=== PATIENT | female | born 1980 | race Caucasian/White ===

== ENCOUNTER 2021-07-23 03:55 | Inpatient (IN) | payer MEDICAID, SELFPAY ==
[2021-07-23] VITALS (24 sets, daily range): BP systolic 96–142; BP diastolic 49–92; PULSE 62–98; RESP 14–20; TEMP 36.3–36.9; O2SAT 93–100; BMI 32.8; BMI 32.9
--- NOTE | 2021-07-23 04:11 | CT_ITS ---
PROCEDURE INFORMATION: Exam: CT Left Upper Extremity With Contrast, Forearm Exam date and time: 07/23/2021 4:30 AM Age: 40 years old Clinical indication: Mass or lump and swelling; Arm, lower; Left; Additional info: Abcess mid forearm TECHNIQUE: Imaging protocol: CT of the Left upper extremity with intravenous contrast was performed. Exam focused on the forearm. Radiation optimization: All CT scans at this facility use at least one of these dose optimization techniques: automated exposure control; mA and/or kV adjustment per patient size (includes targeted exams where dose is matched to clinical indication); or iterative reconstruction. Contrast material: ISOVUE; Contrast volume: 75 ml; Contrast route: IV; COMPARISON: CR [id number] XR hand LT 2V 02/10/2018 12:05 AM FINDINGS: Bones/joints: No acute fracture or malalignment. No evidence of osteomyelitis. Soft tissues: There is a small abscess within the epidermis/dermis overlying the volar aspect of the forearm measuring 1.2 x 1.7 x 2.1 cm. There is some surrounding fat stranding and subcutaneous edema within subcutaneous tissues, consistent with cellulitis. There may be an additional tiny abscess in the subcutaneous soft tissues overlying the antecubital fossa measuring up to 0.8 cm (series 5, image 75). There is associated skin thickening. IMPRESSION: 1. Small abscess within the epidermis/dermis overlying the volar aspect of the forearm measuring up to 2.1 cm with evidence of surrounding cellulitis. 2. There may be an additional tiny abscess in the subcutaneous soft tissues overlying the antecubital fossa measuring up to 0.8 cm.
[2021-07-23 04:39] LABS: Basophils # 0.1 K/mm3 (0-0.2); Basophils % 0.9 % (0.1-2.0); Eosinophils # 0.2 K/mm3 (0.0-0.4); Eosinophils % 1.7 % (0.1-12.0); Hematocrit 38.2 % (37.0-47.0); Hemoglobin 12.6 g/dL (12.2-16.2); Lymphocytes # 2.6 K/mm3 (0.7-4.5); Mean Corpuscular Hemoglobin 27.8 pg (27.0-31.2); Mean Corpuscular Volume 84.4 fl (81-99); Mean Platelet Volume 8.6 fl (7.4-10.4); Monocytes # 0.5 K/mm3 (0.1-1.0); Monocytes % 5.2 % (1.7-9.3); Neutrophils # 5.9 K/mm3 (1.8-7.8); Neutrophils % 64.2 % (37.0-80.0); Platelet Count 326 K/mm3 (142-424); Red Blood Count 4.53 M/mm3 (4.20-5.40); Red Cell Distribution Width 13.2 % (11.5-17.5); White Blood Count 9.1 K/mm3 (4.8-10.8)
[2021-07-23 04:49] LABS: Alanine Aminotransferase 43 U/L (12-78); Albumin Level 4.1 g/dl (3.5-5.0); Albumin/Globulin Ratio 1.1 (1.1-1.8); Alkaline Phosphatase 200 U/L (38-126); Aspartate Amino Transferase 35 U/L (14-36); Bilirubin,Total 0.6 mg/dl (0.2-1.3); Blood Urea Nitrogen 10 mg/dl (7-17); Carbon Dioxide 29 mmol/L (22.0-30.0); Chloride 102 mmol/L (98-107); Creatinine Clearance Estimated 164 mL/min (50-200); Estimated Glomerular Filt Rate 94 ml/min (>60); GFR (African American) 113 ML/MIN (>60); Globulin 3.6 g/dL (1.3-3.2); Glucose 152 mg/dl (74-100); HCG Qualitative, Serum Negative (Negative); Sodium 136 mmol/L (136-145); Total Protein,Serum 7.7 g/dl (6.3-8.2)
[2021-07-23 04:50] LABS: Lactic Acid 1.3 mmol/L (0.7-2.1)
[2021-07-23 04:55] LABS: C-Reactive Protein 9.2 mg/L (0-4)
[2021-07-23 05:08] LABS: Procalcitonin 0.095 ng/mL (0.0-2.0)
[2021-07-23 05:10] LABS: Erythrocyte Sedimentation Rate 24 mm/hr (0-20)
--- NOTE | 2021-07-23 05:10 | PC.NURSE ---
Chantel from [employer] verified Vanc dosing at this time
--- NOTE | 2021-07-23 05:59 | HMH.EDSKAF ---
ED Disposition Clinical Impression: Obesity (BMI 30.0-34.9) Abscess of skin or subcutaneous tissue Qualifiers: Site of cutaneous abscess: extremity Site of cutaneous abscess of extremity: upper extremity Laterality: left Qualified Code(s): L02.414 - Cutaneous abscess of left upper limb Disposition: Admitted as Observation Condition on Discharge: Good Instructions: DI for Skin Abscess Referrals: Provider,Referral, [Primary Care Provider] - - Critical Care Critical Care Time: No Attestation: On 07/23/21, the high probability of a clinically significant, sudden or life threatening deterioration of the following system(s) required my full and direct attention, intervention and personal management. The time I documented below is in addition to time spent performing reported procedures but includes the following listed in this critical care notation. Medical Decision Making - Medical Records Medical records reviewed: Yes: I reviewed the patient's medical records. - Elieser Inquiry Pt receiving controlled substance: No Vital Signs: 07/23/21 03:56 07/23/21 05:13 Temperature 98.1 F Temperature Source Oral Pulse Rate 79 Pulse Rate [Right Radial] 90 Respiratory Rate 20 16 Blood Pressure 132/92 H Blood Pressure [Right Arm] 142/89 H Blood Pressure Mean [Right Arm] 106 Blood Pressure Source Automatic Cuff Blood Pressure Source [Right Arm] Automatic Cuff Blood Pressure Position Sitting Blood Pressure Position [Right Arm] Sitting 02 Sat by Pulse Oximetry 99 100 Oxygen Delivery Method Room Air Room Air - Lab Data Lab results reviewed: Yes: I reviewed the patient's lab results. Lab Results 07/23/21 04:20: WBC 9.1, RBC 4.53, Hgb 12.6, Hct 38.2, MCV 84.4, MCH 27.8, MCHC 33.0, RDW 13.2, Plt Count 326, MPV 8.6, Neut % (Auto) 64.2, Lymph % (Auto) 28.0, [place] % (Auto) 5.2, Eos % (Auto) 1.7, Baso % (Auto) 0.9, Neut # (Auto) 5.9, Lymph # (Auto) 2.6, [place] # (Auto) 0.5, Eos # (Auto) 0.2, Baso # (Auto) 0.1, ESR 24 H 07/23/21 04:20: Sodium 136, Potassium 4.0, Chloride 102, Carbon Dioxide 29, Anion Gap 9.0, BUN 10, Creatinine 0.70, Estimated Creat Clear 164, Estimated GFR 94, Est GFR ( Amer) 113, Glucose 152 H, Calcium 9.0, Total Bilirubin 0.6, AST 35, ALT 43, Alkaline Phosphatase 200 H, C-Reactive Protein 9.2 H, Total Protein 7.7, Albumin 4.1, Globulin 3.6 H, Albumin/Globulin Ratio 1.1 07/23/21 04:20: Lactate 1.3 07/23/21 04:20: Serum HCG, Qual Negative 07/23/21 04:20: Procalcitonin 0.095 Result diagrams: 07/23/21 04:20 07/23/21 04:20 Orders (Tests/Meds): ED MEDICATIONS Generic Name Dose Route Start Last Admin Trade Name Freq PRN Reason Stop Dose Admin Lactated Ringer's 1,000 mls @ 999 mls/hr 07/23/21 04:30 07/23/21 05:04 Lactated Ringer's 1000 Ml Bag IV 07/23/21 05:30 999 mls/hr .Q1H1M FREIDA Administration Vancomycin HCl 2,000 mg/ 250 mls @ 125 mls/hr 07/23/21 05:15 Sodium Chloride IV 07/23/21 07:14 ONCE ONE Vancomycin/PEG/NADA/Lysine/Water 1.75 gm in 350 mls @ 175 mls/hr 07/23/21 18:00 Vancomycin 1.75gm/350ml (Peg) Premix IV 08/06/21 17:59 Q12H FREIDA Discontinued Medications Generic Name Dose Route Start Last Admin Trade Name Freq PRN Reason Stop Dose Admin Iopamidol 75 ml 07/23/21 05:02 07/23/21 05:03 Iopamidol-370 (76%);100ml Bottle IV 07/23/21 05:03 75 ml ONCE ONE Administration Ketorolac Tromethamine 30 mg 07/23/21 05:03 07/23/21 05:04 Ketorolac 30mg/Ml Vial IV 07/23/21 05:04 30 mg ONCE ONE Administration Sodium Chloride 10 ml 07/23/21 05:02 07/23/21 05:03 Sodium Chloride 0.9% 10ml Syr (Rad Only) IV 07/23/21 05:03 10 ml ONCE ONE Administration ORDERS Category Date Time Status Blood Culture Stat Micro 07/23/21 04:20 Received - CT Data CT Scan: Other (forearm ) Time Received: 06:[address] Reviewed: Yes: I have viewed the radiologist's interpretation Preliminary Findings: Abnormal Medical Decision Jaime
[2021-07-23 06:14] LABS: Coronavirus 19, PCR Not Detected (NotDetected); Influenza A, PCR Not Detected (NotDetected); Influenza B, PCR Not Detected (NotDetected)
--- NOTE | 2021-07-23 06:56 | PC.NURSE ---
pt arrived to floor via wheelchair at this time
--- NOTE | 2021-07-23 07:14 | P.CONPHA_ITS ---
[facility] Pharmacy VTE Monitoring - Patient Demographics Admission date: 07/23/21 Report Date: 07/23/21 Time: 07:14 Allergies/Adverse Reactions: Patient Allergies No Known Allergies Allergy (Verified 04/22/18 23:44) Height: 1.7 m Weight: 95.254 kg Patient Problems: Current Active Problems Abscess of skin or subcutaneous tissue (Acute) Obesity (BMI 30.0-34.9) (Acute) - VTE Risk Labs: VTE Related Lab Results Hgb 12.6 g/dL (12.2-16.2) 07/23/21 04:20 Hct 38.2 % (37.0-47.0) 07/23/21 04:20 Plt Count 326 K/mm3 (142-424) 07/23/21 04:20 BUN 10 mg/dl (7-17) 07/23/21 04:20 Creatinine 0.70 mg/dl (0.52-1.04) 07/23/21 04:20 Estimated Creat Clear 164 mL/min (50-200) 07/23/21 04:20 VTE Risk Level: Low Risk - Prophylaxis VTE Prophylaxis Ordered?: Yes Types of VTE Prophylaxis: TEDS Knee High Location of Applied Device: Bilateral Lower Extremeties
--- NOTE | 2021-07-23 07:54 | P.CONPHA_ITS ---
- Pharmacy Consult Date: 07/23/21 Time: 07:54 Referring provider: DR. MADDEN Reason for Consult:: VANCOMYCIN DOSING Allergies and ADEs:: Allergies Allergy/AdvReac Type Severity Reaction Status Date / Time No Known Allergies Allergy Verified 04/22/18 23:44 Home Medications:: Home Medications Medication Instructions Recorded Confirmed Type No Known Home Medications 07/23/21 07/23/21 History Height: 1.7 m Weight: 95.254 kg Laboratory Results:: Laboratory Results - last 24 hr 07/23/21 04:20: WBC 9.1, RBC 4.53, Hgb 12.6, Hct 38.2, MCV 84.4, MCH 27.8, MCHC 33.0, RDW 13.2, Plt Count 326, MPV 8.6, Neut % (Auto) 64.2, Lymph % (Auto) 28.0, [place] % (Auto) 5.2, Eos % (Auto) 1.7, Baso % (Auto) 0.9, Neut # (Auto) 5.9, Lymph # (Auto) 2.6, [place] # (Auto) 0.5, Eos # (Auto) 0.2, Baso # (Auto) 0.1, ESR 24 H 07/23/21 04:20: Sodium 136, Potassium 4.0, Chloride 102, Carbon Dioxide 29, Anion Gap 9.0, BUN 10, Creatinine 0.70, Estimated Creat Clear 164, Estimated GFR 94, Est GFR ( Amer) 113, Glucose 152 H, Calcium 9.0, Total Bilirubin 0.6, AST 35, ALT 43, Alkaline Phosphatase 200 H, C-Reactive Protein 9.2 H, Total Protein 7.7, Albumin 4.1, Globulin 3.6 H, Albumin/Globulin Ratio 1.1 07/23/21 04:20: Lactate 1.3 07/23/21 04:20: Serum HCG, Qual Negative 07/23/21 04:20: Procalcitonin 0.095 07/23/21 06:09: SARS-CoV-2 (PCR) Not detected, Influenza A Untype (PCR) Not detected, Influenza Type B (PCR) Not detected Medical History: Reports:: MRSA Denies:: Cancer, Diabetes Mellitus Type 1, Diabetes Mellitus Type 2 Assessment and Plan - Assessment and plan all Dx Assessment and Plan for all problems:: Age: 40 yo Serum creatinine: 0.7 mg/dL Height: 66.9 Inches Weight (kg): 95.3 Assessment: IBW (kg): 65.87 Dosing wt(kg): 95.3 Estimated Creatinine clearance (ml/min): 130 Clearance limited to 130 ml/min to reduce risk of overdosing. CRCL method: Cockcroft and Gault using ibw(default). Drug selected: Vancomycin Loading dose (mg): 0 Vd (liters): 71.5 (factor used: 0.75 L/kg) Marquise (hr-1): 0.112 Half life (hrs): 6.19 Recommended dose: 1500 mg Interval: 8 hrs Infusion time (hrs): 2.0 Predicted peak (mcg/mL): 31.8 Predicted trough (mcg/mL): 16.24 Total body weight is being used for vancomycin dosing. Recommendations: PATIENT GIVEN VANCOMYCIN 2000 MG X1 DOSE IN ER THIS AM. Recommend giving Vancomycin 1500 mg q 8 hrs with an expected Cpeak of 31.8 mcg/ml and an expected Ctrough of 16.24 mcg/ml. ----Vanco only - ignore for aminoglycosides----- CLvanco= 8.01 L/hr AUC 0-24 /ELVIN Data: ELVIN 0.5 mcg/mL: AUC/ELVIN: 1123.6 ELVIN 1.0 mcg/mL: AUC/ELVIN: 561.8 --------- ELVIN 1.5 mcg/mL: AUC/ELVIN: 374.5 ELVIN 2.0 mcg/mL: AUC/ELVIN: 280.9 Thank you for the consult, will continue to follow.
--- NOTE | 2021-07-23 08:47 | HMH.GSCON ---
*Admission Date: 07/23/21 *Reason for consult:: Left forearm abscess *History of present illness: Patient is a 40-year-old female from [place]. She had presented to the emergency department early this morning with a progressively worsening left anterior forearm abscess. She states that this area had began on 07/19/2021. He was initially quite small. However it progressed in severity with significant swelling and tenderness with surrounding progressive redness. Therefore she decided to present to the emergency department early this morning at approximately 4 AM. She was admitted for inpatient management and surgical consultation. She denies any definite inciting event reportedly. Review of Systems - Review of Systems Review of systems:: pertinent systems reviewed and negative unless documented below - *Neurologic Denies localized weakness, Denies seizure-like activity [facility] History I have reviewed the patient's past medical history: Yes Medical History: Reports:: MRSA Denies:: Cancer, Diabetes Mellitus Type 1, Diabetes Mellitus Type 2 *Have you ever received a pneumonia vaccine?: No *Have you received a flu vaccine this season?: No Other Surgeries: Yes: Cholecystectomy, Tubal Ligation Amputation: No Fractures: No - *Social History Smoking Status: Current every day smoker Tobacco Type: cigarettes, e-cigarettes # Packs/Day (cigarettes): 1 Alcohol Intake: never Substance Use Type: denies use *Occupational Status:: unemployed *Travel in the last 8 weeks: None Family Hx:: Non-contributory Meds Home Medications Medication Instructions Recorded Confirmed Type No Known Home Medications 07/23/21 07/23/21 History Allergies Allergy/AdvReac Type Severity Reaction Status Date / Time No Known Allergies Allergy Verified 04/22/18 23:44 Exam Vital signs and Labs for Last 24 Hours: Temp Pulse Resp BP Pulse Ox 97.6 F 85 18 140/81 100 07/23/21 07:05 07/23/21 07:05 07/23/21 07:05 07/23/21 07:05 07/23/21 07:05 Laboratory Results - last 24 hr 07/23/21 04:20: WBC 9.1, RBC 4.53, Hgb 12.6, Hct 38.2, MCV 84.4, MCH 27.8, MCHC 33.0, RDW 13.2, Plt Count 326, MPV 8.6, Neut % (Auto) 64.2, Lymph % (Auto) 28.0, [place] % (Auto) 5.2, Eos % (Auto) 1.7, Baso % (Auto) 0.9, Neut # (Auto) 5.9, Lymph # (Auto) 2.6, [place] # (Auto) 0.5, Eos # (Auto) 0.2, Baso # (Auto) 0.1, ESR 24 H 07/23/21 04:20: Sodium 136, Potassium 4.0, Chloride 102, Carbon Dioxide 29, Anion Gap 9.0, BUN 10, Creatinine 0.70, Estimated Creat Clear 164, Estimated GFR 94, Est GFR ( Amer) 113, Glucose 152 H, Calcium 9.0, Total Bilirubin 0.6, AST 35, ALT 43, Alkaline Phosphatase 200 H, C-Reactive Protein 9.2 H, Total Protein 7.7, Albumin 4.1, Globulin 3.6 H, Albumin/Globulin Ratio 1.1 07/23/21 04:20: Lactate 1.3 07/23/21 04:20: Serum HCG, Qual Negative 07/23/21 04:20: Procalcitonin 0.095 07/23/21 06:09: SARS-CoV-2 (PCR) Not detected, Influenza A Untype (PCR) Not detected, Influenza Type B (PCR) Not detected I & O for Last 24 hours: Intake & Output 07/20/21 07/21/21 07/22/21 07/23/21 11:59 11:59 11:59 11:59 Intake Total 1100 / 1100 Balance 1100 / 1100 Weight 209 lb 15.986 oz - *Routine Extremities Exam Comments: On the left anterior forearm there is an area several centimeters of fluctuance. There is surrounding induration and erythema. Results - Labs 07/23/21 04:20 07/23/21 04:20 Laboratory Results - last 24 hr 07/23/21 04:20: WBC 9.1, RBC 4.53, Hgb 12.6, Hct 38.2, MCV 84.4, MCH 27.8, MCHC 33.0, RDW 13.2, Plt Count 326, MPV 8.6, Neut % (Auto) 64.2, Lymph % (Auto) 28.0, [place] % (Auto) 5.2, Eos % (Auto) 1.7, Baso % (Auto) 0.9, Neut # (Auto) 5.9, Lymph # (Auto) 2.6, [place] # (Auto) 0.5, Eos # (Auto) 0.2, Baso # (Auto) 0.1, ESR 24 H 07/23/21 04:20: Sodium 136, Potassium 4.0, Chloride 102, Carbon Dioxide 29, Anion Gap 9.0, BUN 10, Creatinine 0.70, Estimated Creat Clear 164, Estimated GFR 94, Est GFR ( Amer) 113, Glucose 152 H,
--- NOTE | 2021-07-23 10:17 | P.PN_ITS ---
[facility] Anesthesia Checklist - Patient Identification Patient Identification: Arm Band, Verbal (Name & ) - Structural Data Admitted From: Home Planned Operative Procedure/s: I and D Left Forearm Consent for Planned Operative Procedure(s) Verified: Yes Verified Documents: Surgical Consent - NPO Status Verified Time NPO: 02:00 - Chart Verification Results Verified: HCG - Airway Assessment C-Spine Mobility Assessed: Yes TMJ Mobility Assessed: Yes Dentition: Good Dentition - Neurological Assessment Level of Consciousness: Awake, Alert, Appropriate - Anesthesia Plan Anesthesia Risk discussed: Yes ASA Class: II Anesthesia Type: General [facility] History I have reviewed the patient's past medical history: Yes Medical History: Reports:: MRSA Denies:: Cancer, Diabetes Mellitus Type 1, Diabetes Mellitus Type 2 *Have you ever received a pneumonia vaccine?: No *Have you received a flu vaccine this season?: No Anesthesia experience/problems:: none Other Surgeries: Yes: Cholecystectomy, Tubal Ligation Amputation: No Fractures: No - *Social History Smoking Status: Current every day smoker Tobacco Type: cigarettes, e-cigarettes # Packs/Day (cigarettes): 1 Alcohol Intake: never Substance Use Type: denies use *Occupational Status:: unemployed *Travel in the last 8 weeks: None Family Hx:: Non-contributory
--- NOTE | 2021-07-23 10:17 | HMH.OPNOTE ---
Date of procedure: 07/23/21 Pre-op Diagnosis:: Left forearm abscess Post-op Diagnosis:: Same Procedure performed:: Incision and drainage left forearm abscess Surgeon:: Leonardo Booth MD TECHNICAL CUSTOMER SUPPORT SPECIALIST:: Other Anesthesia: LMA Estimated blood loss (mL): 5 Clinical Note:: Patient is a 40-year-old female from [place]. She had presented to the emergency department early this morning with a progressively worsening left anterior forearm abscess. She states that this area had began on 07/19/2021. It was initially quite small. However it progressed in severity with significant swelling and tenderness with surrounding progressive redness, erythema, and induration with central fluctuance. Therefore she presented to the emergency department early this morning at approximately 4 AM. She was admitted for inpatient management and surgical consultation. She denies any definite inciting event reportedly. Plan was made for incision and drainage under anesthesia. Operative findings:: Subcutaneous abscess with thick pus. Inflamed vein deep with an abscess cavity. Operative note:: Patient was taken to the operating room. She was given preoperative intravenous antibiotics. In the operating room she was placed in a supine position. General anesthesia was induced via LMA. The area was prepped and draped in the standard surgical fashion. There was already some spontaneous drainage from the area which had been noted in the preoperative area. Limited incision was made longitudinally. There was some thick pus which exuded from the wound. This was sent for culture. Abscess cavity was opened. Pus was evacuated. There was a deep vein within the abscess cavity which was inflamed. Local anesthetic was infiltrated. Hemostasis was achieved with electrocautery. Wound was packed with saline moistened gauze and covered with clean dry sterile dressing. Condition: stable Disposition: PACU Specimens:: Culture sent Complications:: None immediately apparent
--- NOTE | 2021-07-23 10:18 | P.PN_ITS ---
[facility] Anesthesia Record Part I Intake, IV Amount: 200 Estimated blood loss (mL): 1 Urine output (mL): 0 Blood Pressure: 96/54 SaO2: 93 Pulse Rate: 74 Respiratory Rate: 14 Temperature: 97.5 F Patient is:: Drowsy Stable to PACU at:: 10:16
--- NOTE | 2021-07-23 10:56 | SUR.PHASEI ---
1045- detailed report called to jessica mckeon on [facility] floor. 1047- pt [facility] to jessica mckeon at this time.
--- NOTE | 2021-07-23 12:17 | HMH.HP ---
*Admission Date: 07/23/21 *Chief complaint: abscess *History of present illness: this patient presented to the ed this am with progressive swelling and pain lt forearm - pt was seen and admitted for iv abx and surg consult -no reported diabetes or ivdu - [facility] History I have reviewed the patient's past medical history: Yes Medical History: Reports:: MRSA Denies:: Cancer, Diabetes Mellitus Type 1, Diabetes Mellitus Type 2 *Have you ever received a pneumonia vaccine?: No *Have you received a flu vaccine this season?: No Anesthesia experience/problems:: none Other Surgeries: Yes: Cholecystectomy, Tubal Ligation Amputation: No Fractures: No - *Social History Smoking Status: Current every day smoker Tobacco Type: cigarettes, e-cigarettes # Packs/Day (cigarettes): 1 Alcohol Intake: never Substance Use Type: denies use *Occupational Status:: unemployed *Travel in the last 8 weeks: None Family Hx:: Non-contributory Review of Systems - Review of Systems Review of systems:: pertinent systems reviewed and negative unless documented below - Constitutional Denies fever(s) - Eyes Denies change in vision - ENT Denies dizziness - *Cardiovascular Denies chest pain - *Respiratory Denies cough - *Gastrointestinal Denies abdominal pain - *Genitourinary Denies blood in urine - *Musculoskeletal Denies joint pain, Denies joint swelling - Integumentary/Breasts Reports other (skin abscess), Denies rash - *Neurologic Denies localized weakness, Denies seizure-like activity - Psychiatric Denies depression Meds Home Medications Medication Instructions Recorded Confirmed Type No Known Home Medications 07/23/21 07/23/21 History Allergies Allergy/AdvReac Type Severity Reaction Status Date / Time No Known Allergies Allergy Verified 04/22/18 23:44 Exam Vital signs and Labs for Last 24 Hours: Temp Pulse Resp BP Pulse Ox 98.0 F 62 20 113/59 L 98 07/23/21 12:05 07/23/21 12:05 07/23/21 12:05 07/23/21 12:05 07/23/21 12:05 Laboratory Results - last 24 hr 07/23/21 04:20: WBC 9.1, RBC 4.53, Hgb 12.6, Hct 38.2, MCV 84.4, MCH 27.8, MCHC 33.0, RDW 13.2, Plt Count 326, MPV 8.6, Neut % (Auto) 64.2, Lymph % (Auto) 28.0, [place] % (Auto) 5.2, Eos % (Auto) 1.7, Baso % (Auto) 0.9, Neut # (Auto) 5.9, Lymph # (Auto) 2.6, [place] # (Auto) 0.5, Eos # (Auto) 0.2, Baso # (Auto) 0.1, ESR 24 H 07/23/21 04:20: Sodium 136, Potassium 4.0, Chloride 102, Carbon Dioxide 29, Anion Gap 9.0, BUN 10, Creatinine 0.70, Estimated Creat Clear 164, Estimated GFR 94, Est GFR ( Amer) 113, Glucose 152 H, Calcium 9.0, Total Bilirubin 0.6, AST 35, ALT 43, Alkaline Phosphatase 200 H, C-Reactive Protein 9.2 H, Total Protein 7.7, Albumin 4.1, Globulin 3.6 H, Albumin/Globulin Ratio 1.1 07/23/21 04:20: Lactate 1.3 07/23/21 04:20: Serum HCG, Qual Negative 07/23/21 04:20: Procalcitonin 0.095 07/23/21 06:09: SARS-CoV-2 (PCR) Not detected, Influenza A Untype (PCR) Not detected, Influenza Type B (PCR) Not detected I & O for Last 24 hours: Intake & Output 07/21/21 07/22/21 07/23/21 07/24/21 11:59 11:59 11:59 11:59 Intake Total 1300 / 1300 Balance 1300 / 1300 Weight 209 lb 15.986 oz - Constitutional no acute distress, obese - *Routine HEENT Exam Head: Present: normocephalic Eye: Present: EOMI, PERRL. Absent: conjunctival icterus ENT: Present: mucous membranes dry - *Routine Neck Exam Absent: JVD - *Routine Respiratory Exam Present: decreased breath sounds - *Routine Cardiovascular Exam Present: RRR, murmur - *Routine Abdominal Exam Present: soft - *Routine Rectal Exam Rectal:: deferred - *Routine Genitalia Exam Genitalia:: deferred - *Routine Extremities Exam Absent: calf tenderness - *Routine Skin Exam Comments: 2x4 cm abscess lt forearm - *Routine Neurological Exam Present: alert, CN II-XII intact - Routine Psychiatric Exam Present: cooperative Assessment and Plan (1) [place]
--- NOTE | 2021-07-23 14:47 | PC.NURSE ---
PT IS RESTING IN BED WITH SIGNIFICANT OTHER. PT HAS BEEN SLEEPING SINCE ARRIVING BACK TO THE FLOOR FROM SURGERY. NO COMPLAINTS OF DISCOMFORT. PT STATES SHE HAS BEEN UP TO THE BATHROOM BUT STILL HAS NOT PROVIDED A URINE SAMPLE. LUNG SOUNDS CLEAR. ABDOMEN SOFT/NON TENDER WITH ACTIVE BOWEL SOUNDS. DRESSING TO THE LFA C/D/I. POST OP VSS. WILL CONTINUE TO MONITOR.
--- NOTE | 2021-07-23 22:43 | PC.NURSE ---
Patient's dsg was changed wet to dry. Patient tolerated it fair. Wet 4x4, dry 4x4, kerlix and aracely bandage where used.
[2021-07-24] VITALS: BP 110/54; PULSE 115; RESP 16; TEMP 36.4; O2SAT 98
[2021-07-24 04:00] VITALS: BP 108/68; PULSE 69; RESP 16; TEMP 36.6; O2SAT 90
[2021-07-24 05:17] VITALS: BMI 33.1
[2021-07-24 05:29] LABS: Microscopic, Urine URINE MICROSCOPIC (MICROSCOPIC)
[2021-07-24 06:35] LABS: Appearance,Urine CLEAR (Clear); Bilirubin,Urine Negative (Negative); Blood, Urine Negative (Negative); Color,Urine YELLOW (Yellow); Glucose,Urine (UA) Negative (Negative); Ketones,Urine Negative (Negative); Leukocyte Esterase,Urine Negative (Negative); Nitrate,Urine Negative (Negative); Protein,Urine Negative (Negative); Urobilinogen,Urine 0.2 EU/dl (0.2)
[2021-07-24 06:37] LABS: Chloride 108 mmol/L (98-107); Sodium 140 mmol/L (136-145)
[2021-07-24 06:38] LABS: Potassium 4.7 mmoL/L (3.5-5.1)
[2021-07-24 06:41] LABS: Anion Gap 11.7 mEq/L (5-15); Basophils % 0.5 % (0.1-2.0); Blood Urea Nitrogen 10 mg/dl (7-17); Calcium 8.2 mg/dl (8.4-10.2); Carbon Dioxide 25 mmol/L (22.0-30.0); Creatinine Clearance Estimated 231 mL/min (50-200); Eosinophils # 0.1 K/mm3 (0.0-0.4); Eosinophils % 1.7 % (0.1-12.0); Estimated Glomerular Filt Rate 138 ml/min (>60); GFR (African American) 167 ML/MIN (>60); Glucose 136 mg/dl (74-100); Hematocrit 36.1 % (37.0-47.0); Hemoglobin 12.2 g/dL (12.2-16.2); Lymphocytes # 2.1 K/mm3 (0.7-4.5); Lymphocytes % 24.7 % (10-50); Mean Corpuscular HGB Conc 33.8 g/dL (31.8-35.4); Mean Corpuscular Hemoglobin 28.8 pg (27.0-31.2); Mean Corpuscular Volume 85.3 fl (81-99); Mean Platelet Volume 9.6 fl (7.4-10.4); Monocytes # 0.5 K/mm3 (0.1-1.0); Monocytes % 6.2 % (1.7-9.3); Neutrophils # 5.7 K/mm3 (1.8-7.8); Neutrophils % 66.9 % (37.0-80.0); Platelet Count 357 K/mm3 (142-424); Red Blood Count 4.23 M/mm3 (4.20-5.40); Red Cell Distribution Width 13.2 % (11.5-17.5); White Blood Count 8.5 K/mm3 (4.8-10.8)
[2021-07-24 06:47] LABS: Benzodiazepines Screen,Urine Positive ng/ml (<200)
[2021-07-24 06:48] LABS: Barbiturates Screen,Urine Negative ng/ml (<200)
[2021-07-24 06:49] LABS: Cannabinoid Screen,Urine Negative ng/ml (<50); Cocaine Screen,Urine Negative ng/ml (<300)
[2021-07-24 06:50] LABS: Methadone Screen,Urine Negative ng/ml (<300); Opiate Screen,Urine Positive ng/ml (<300)
[2021-07-24 06:51] LABS: Phencyclidine Screen,Urine Negative ng/ml (<25)
--- NOTE | 2021-07-24 07:19 | HMH.GSPN ---
Subjective Narrative: Patient states overall her arm feels better after incision and drainage. However, she has some pain with dressing changes. Progress Note: A&P (1) Tobacco use Status: Acute (2) Abscess of skin or subcutaneous tissue Status: Acute (3) Obesity (BMI 30.0-34.9) Status: Acute Assessment and Plan for All Diagnoses:: Cultures pending. If plan is for discharge patient will need clear instructions on twice daily dressing changes. Also would need broad coverage oral antibiotics to cover MRSA as well as gram-negative's. Would need close outpatient follow-up. Exam Vital signs and Labs for Last 24 Hours: Temp Pulse Resp BP Pulse Ox 97.9 F 69 16 108/68 L 90 L 07/24/21 04:00 07/24/21 04:00 07/24/21 04:00 07/24/21 04:00 07/24/21 04:00 Laboratory Results - last 24 hr 07/24/21 05:12: Urine Opiates Screen Positive H, Urine Methadone Screen Negative, Ur Barbituates Screen Negative, Ur Phencyclidine Scrn Negative, U Benzodiazepines Scrn Positive H, Urine Cocaine Screen Negative, U Marijuana (THC) Screen Negative 07/24/21 05:12: Urine Color Yellow, Urine Appearance Clear, Urine pH 7.0, Ur Specific [place] 1.010, Urine Protein Negative, Urine Glucose (UA) Negative, Urine Ketones Negative, Urine Blood Negative, Urine Nitrate Negative, Urine Bilirubin Negative, Urine Urobilinogen 0.2, Ur Leukocyte Esterase Negative 07/24/21 05:57: WBC 8.5, RBC 4.23, Hgb 12.2, Hct 36.1 L, MCV 85.3, MCH 28.8, MCHC 33.8, RDW 13.2, Plt Count 357, MPV 9.6, Neut % (Auto) 66.9, Lymph % (Auto) 24.7, [place] % (Auto) 6.2, Eos % (Auto) 1.7, Baso % (Auto) 0.5, Neut # (Auto) 5.7, Lymph # (Auto) 2.1, [place] # (Auto) 0.5, Eos # (Auto) 0.1, Baso # (Auto) 0.0 07/24/21 05:57: Sodium 140, Potassium 4.7, Chloride 108 H, Carbon Dioxide 25, Anion Gap 11.7, BUN 10, Creatinine 0.50 L D, Estimated Creat Clear 231, Estimated GFR 138, Est GFR ( Amer) 167 D, Glucose 136 H, Calcium 8.2 L I & O for Last 24 hours: Intake & Output 07/21/21 07/22/21 07/23/21 07/24/21 11:59 11:59 11:59 11:59 Intake Total 1300 / 1300 1783 / 1783 Output Total 750 / 750 Balance 1300 / 1300 1033 / 1033 Weight 209 lb 15.986 oz 211 lb 3 oz Microbiology Reports for the Last 24 Hours: Microbiology 07/23/21 10:00 Arm,Left - Abscess Gram Stain - Final 07/23/21 10:00 Arm,Left - Abscess Abscess Culture - Preliminary Gram Positive Cocci - *Routine Extremities Exam Comments: Wound itself is clean. Still with appreciable surrounding erythema and induration.
[2021-07-24 07:22] LABS: Squamous Epithelial Cell,Urine Occasional #/hpf (0-5)
[2021-07-24 07:23] LABS: Amphetamine/Metha Screen,Urine Positive ng/ml (<1000)
[2021-07-24 08:00] VITALS: BP 101/43; PULSE 82; RESP 17; TEMP 36.6; O2SAT 98
--- NOTE | 2021-07-24 09:01 | HMH.ACPN2 ---
Internal Medicine - PN: Subj *Date: 07/24/21 *Time: 09:46 Interval history: 40-year-old female patient resting bed with family member, she denies any concerns during night. Dressing performed clean dry and intact. General surgery performed an incision and drainage of left forearm with evacuation. Discussed with patient need to stay in hospital another day regarding wound cultures, dressing changes, and pain control, she is agreeable to this and discussed probable discharge tomorrow and hopefully wound cultures resulted Exam Vital signs and Labs for Last 24 Hours: Temp Pulse Resp BP Pulse Ox 97.9 F 82 17 101/43 L 98 07/24/21 08:00 07/24/21 08:00 07/24/21 08:00 07/24/21 08:00 07/24/21 08:00 Laboratory Results - last 24 hr 07/24/21 05:12: Urine Opiates Screen Positive H, Urine Methadone Screen Negative, Ur Barbituates Screen Negative, Ur Phencyclidine Scrn Negative, Ur Amphetamines Screen Positive H, U Benzodiazepines Scrn Positive H, Urine Cocaine Screen Negative, U Marijuana (THC) Screen Negative 07/24/21 05:12: Urine Color Yellow, Urine Appearance Clear, Urine pH 7.0, Ur Specific [place] 1.010, Urine Protein Negative, Urine Glucose (UA) Negative, Urine Ketones Negative, Urine Blood Negative, Urine Nitrate Negative, Urine Bilirubin Negative, Urine Urobilinogen 0.2, Ur Leukocyte Esterase Negative, Urine RBC None, Urine WBC 3-5, Ur Squamous Epith Cells Occasional, Urine Bacteria None 07/24/21 05:57: WBC 8.5, RBC 4.23, Hgb 12.2, Hct 36.1 L, MCV 85.3, MCH 28.8, MCHC 33.8, RDW 13.2, Plt Count 357, MPV 9.6, Neut % (Auto) 66.9, Lymph % (Auto) 24.7, [place] % (Auto) 6.2, Eos % (Auto) 1.7, Baso % (Auto) 0.5, Neut # (Auto) 5.7, Lymph # (Auto) 2.1, [place] # (Auto) 0.5, Eos # (Auto) 0.1, Baso # (Auto) 0.0 07/24/21 05:57: Sodium 140, Potassium 4.7, Chloride 108 H, Carbon Dioxide 25, Anion Gap 11.7, BUN 10, Creatinine 0.50 L D, Estimated Creat Clear 231, Estimated GFR 138, Est GFR ( Amer) 167 D, Glucose 136 H, Calcium 8.2 L I & O for Last 24 hours: Intake & Output 07/21/21 07/22/21 07/23/21 07/24/21 23:59 23:59 23:59 23:59 Intake Total 2162 / 2162 921 / 921 Output Total 0 / 400 750 / 750 Balance 2162 / 1762 171 / 171 Weight 209 lb 15.986 oz 211 lb 3 oz Microbiology Reports for the Last 24 Hours: Microbiology 07/23/21 10:00 Arm,Left - Abscess Gram Stain - Final 07/23/21 10:00 Arm,Left - Abscess Abscess Culture - Preliminary Gram Positive Cocci - Constitutional no acute distress - *Routine HEENT Exam Head: Present: normocephalic Eye: Present: EOMI ENT: Present: mucous membranes moist - *Routine Neck Exam Present: trachea midline. Absent: tracheal deviation - *Routine Respiratory Exam Present: CTA bilaterally. Absent: accessory muscle use - *Routine Cardiovascular Exam Present: RRR - *Routine Abdominal Exam Present: soft, normoactive bowel sounds. Absent: tenderness - *Routine Extremities Exam Present: full ROM, pulses intact. Absent: cyanosis, clubbing - *Routine Skin Exam Present: dry, wounds. Absent: intact, cyanosis, erythema Comments: Dressing left forearm clean dry and intact - *Routine Neurological Exam Present: alert, oriented X3. Absent: altered mental status - Routine Psychiatric Exam Present: normal affect, normal thought process. Absent: visual hallucinations Assessment and Plan (1) Tobacco use Status: Acute Category: Social Hx Code(s): Z72.0 - Tobacco use (2) Abscess of skin or subcutaneous tissue Status: Acute Qualifiers: Site of cutaneous abscess: extremity Site of cutaneous abscess of extremity: upper extremity Laterality: left Qualified Code(s): L02.414 - Cutaneous abscess of left upper limb Category: Medical Code(s): L02.91 - Cutaneous abscess, unspecified (3) Obesity (BMI 30.0-34.9) Status: Acute Category: Medical Code(s): E66.9 - Obesity, unspecified - Assessment and plan all D
[2021-07-24 09:15] LABS: HIV Screen 4th Generation wRfx Non Reactive (Non Reactive)
[2021-07-24 11:24] LABS: Hep A Ab, IgM Negative (Negative); Hepatitis B Core Antibody IgM Negative (Negative); Hepatitis B Surface Antigen Negative (Negative); Hepatitis C Antibody >11.0 s/co ratio (0.0-0.9)
[2021-07-24 12:00] VITALS: BP 108/52; PULSE 78; RESP 17; TEMP 36.9; O2SAT 97
--- NOTE | 2021-07-24 15:55 | PC.NURSE ---
PT IS RESTING IN BED WITH SIGNIFICANT OTHER. PT HAS BEEN SLEEPING T/O MOST OF THE SHIFT. AMBULATES TO THE BATHROOM. EATING AND DRINKING WELL. DRESSING WAS CHANGED THIS MORNING WITH SALINE SOAKED 2X2, DRY 4X4, KERLIX AND JADON WRAP. PT STATED SHE COULD TAKE CARE OF HER DRESSING CHANGES AT HOME WHEN DISCHARGED. LUNG SOUNDS CLEAR. ABDOMEN SOFT/NON TENDER WITH ACTIVE BOWEL SOUNDS. MEDICATED PER MAR FOR DISCOMFORT. WILL CONTINUE TO MONITOR.
[2021-07-24 16:00] VITALS: BP 132/85; PULSE 54; RESP 17; TEMP 36.8; O2SAT 98
[2021-07-24 20:00] VITALS: BP 102/66; PULSE 61; RESP 16; TEMP 36.6; O2SAT 97
[2021-07-24 20:04] LABS: Vancomycin,Peak 27.5 ug/ml (11-39)
[2021-07-25 04:00] VITALS: BP 102/49; PULSE 61; RESP 16; TEMP 37; O2SAT 99
[2021-07-25 06:21] LABS: MANUAL DIFFERENTIAL MANUAL DIFFERENTIAL (MANUAL DIFF)
[2021-07-25 06:23] LABS: Basophils # 0.1 K/mm3 (0-0.2); Eosinophils # 0.2 K/mm3 (0.0-0.4); Eosinophils % 3.4 % (0.1-12.0); Hematocrit 34.9 % (37.0-47.0); Hemoglobin 11.8 g/dL (12.2-16.2); Lymphocytes # 2.4 K/mm3 (0.7-4.5); Mean Corpuscular Volume 85.3 fl (81-99); Monocytes # 0.4 K/mm3 (0.1-1.0); Monocytes % 7.9 % (1.7-9.3); Neutrophils # 2.5 K/mm3 (1.8-7.8); Neutrophils % 44.8 % (37.0-80.0); Platelet Count 286 K/mm3 (142-424); Red Blood Count 4.09 M/mm3 (4.20-5.40); Red Cell Distribution Width 13.5 % (11.5-17.5); White Blood Count 5.6 K/mm3 (4.8-10.8)
[2021-07-25 07:03] LABS: Chloride 113 mmol/L (98-107); Potassium 4.1 mmoL/L (3.5-5.1); Sodium 141 mmol/L (136-145)
--- NOTE | 2021-07-25 07:04 | P.PN_ITS ---
Subjective Patient reports: feels better Progress Note: A&P (1) Tobacco use Status: Acute (2) Abscess of skin or subcutaneous tissue Status: Acute Assessment and plan: Overall, doing well status post incision and drainage of left arm abscess. Final sensitivities pending (preliminary MRSA) Continue dressing changes Continue antibiotics (likely convert to PO (? Zyvox) for d/c home) Consider continuing additional antibiotic such as Levaquin or Augmentin secondary to possible additional organism (3) Obesity (BMI 30.0-34.9) Status: Acute Exam Vital signs and Labs for Last 24 Hours: Temp Pulse Resp BP Pulse Ox 98.6 F 61 16 102/49 L 99 07/25/21 04:00 07/25/21 04:00 07/25/21 04:00 07/25/21 04:00 07/25/21 04:00 Laboratory Results - last 24 hr 07/23/21 09:40: Hepatitis A IgM Ab Negative, Hep Bs Antigen Negative, Hep B Core IgM Ab Negative, Hepatitis C Antibody >11.0 H 07/23/21 09:40: HIV 1&2 Ag/Ab, 4th Gen Non reactive 07/24/21 05:12: Ur Amphetamines Screen Positive H 07/24/21 05:12: Urine RBC None, Urine WBC 3-5, Ur Squamous Epith Cells Occasional, Urine Bacteria None 07/24/21 14:43: Vancomycin Trough 14.0 H 07/24/21 19:16: Vancomycin Peak 27.5 07/25/21 06:15: WBC 5.6 D, RBC 4.09 L, Hgb 11.8 L, Hct 34.9 L, MCV 85.3, MCH 29.0, MCHC 34.0, RDW 13.5, Plt Count 286, MPV 10.0, Neut % (Auto) 44.8, Lymph % (Auto) 43.0, [place] % (Auto) 7.9, Eos % (Auto) 3.4, Baso % (Auto) 1.0, Neut # (Auto) 2.5, Lymph # (Auto) 2.4, [place] # (Auto) 0.4, Eos # (Auto) 0.2, Baso # (Auto) 0.1 I & O for Last 24 hours: Intake & Output 07/22/21 07/23/21 07/24/21 07/25/21 11:59 11:59 11:59 11:59 Intake Total 1300 / 1300 1783 / 1783 2350 / 2350 Output Total 750 / 750 Balance 1300 / 1300 1033 / 1033 2349 / 2349 Weight 209 lb 15.986 oz 211 lb 3 oz Microbiology Reports for the Last 24 Hours: Microbiology 07/23/21 10:00 Arm,Left - Abscess Gram Stain - Final 07/23/21 10:00 Arm,Left - Abscess Abscess Culture - Preliminary Staphylococcus aureus 07/23/21 04:20 Blood Blood Culture - Preliminary NO GROWTH AFTER 48 HOURS 07/23/21 04:20 Blood Blood Culture - Preliminary NO GROWTH AFTER 48 HOURS 07/23/21 10:00 Arm,Left - Abscess - Final - Constitutional no acute distress - *Routine Respiratory Exam Absent: respiratory distress - *Routine Cardiovascular Exam Present: RRR - *Routine Extremities Exam Comments: left arm wound margin clean. + blush and mild induration. no spreading cellulitis.
[2021-07-25 07:06] LABS: Anion Gap 8.1 mEq/L (5-15); Blood Urea Nitrogen 8 mg/dl (7-17); Calcium 8.1 mg/dl (8.4-10.2); Carbon Dioxide 24 mmol/L (22.0-30.0); Creatinine Clearance Estimated 192 mL/min (50-200); Estimated Glomerular Filt Rate 112 ml/min (>60); GFR (African American) 135 ML/MIN (>60); Glucose 110 mg/dl (74-100)
[2021-07-25 08:00] VITALS: BP 123/86; PULSE 62; RESP 18; TEMP 36.7; O2SAT 99
[2021-07-25 08:07] LABS: Hypochromasia 1+; Lymphocytes % 47 % (10-50); Macrocytosis 1+; Monocytes % 6 % (2-9); Neutrophils % 47 % (42-76); Platelet Estimate Normal; Total Cells Counted 100
--- NOTE | 2021-07-25 09:29 | SW/DCPLANNER ---
The plan for this patient is to discharge home today. Patient is agreeable to do all dressing changes at home. Patient has no further needs at this time.
--- NOTE | 2021-07-25 09:43 | HMH.DCSUM ---
General - General Admission date:: 07/23/21 Discharge date: 07/25/21 HPI HPI: this patient presented to the ed this am with progressive swelling and pain lt forearm - pt was seen and admitted for iv abx and surg consult -no reported diabetes or ivdu - Hospital Course Hospital Course: 40-year-old female presented to the emergency department with a progressively worsening left anterior forearm abscess. She states that this area had began on 07/19/2021. It was initially quite small, but then progressed in severity with significant swelling, redness and tenderness. General surgery consulted 07/23/[address]: FINDINGS: Bones/joints: No acute fracture or malalignment. No evidence of osteomyelitis. Soft tissues: There is a small abscess within the epidermis/dermis overlying the volar aspect of the forearm measuring 1.2 x 1.7 x 2.1 cm. There is some surrounding fat stranding and subcutaneous edema within subcutaneous tissues, consistent with cellulitis. There may be an additional tiny abscess in the subcutaneous soft tissues overlying the antecubital fossa measuring up to 0.8 cm (series 5, image 75). There is associated skin thickening. IMPRESSION: 1. Small abscess within the epidermis/dermis overlying the volar aspect of the forearm measuring up to 2.1 cm with evidence of surrounding cellulitis. 2. There may be an additional tiny abscess in the subcutaneous soft tissues overlying the antecubital fossa measuring up to 0.8 cm. Electronically signed by Nesha Urbina MD 07/23/21 incision and drainage of left forearm abscess: Operative findings:: Subcutaneous abscess with thick pus. Inflamed vein deep with an abscess cavity. Operative note:: Patient was taken to the operating room. She was given preoperative intravenous antibiotics. In the operating room she was placed in a supine position. General anesthesia was induced via LMA. The area was prepped and draped in the standard surgical fashion. There was already some spontaneous drainage from the area which had been noted in the preoperative area. Limited incision was made longitudinally. There was some thick pus which exuded from the wound. This was sent for culture. Abscess cavity was opened. Pus was evacuated. There was a deep vein within the abscess cavity which was inflamed. Local anesthetic was infiltrated. Hemostasis was achieved with electrocautery. Wound was packed with saline moistened gauze and covered with clean dry sterile dressing. 40-year-old female patient lying in bed with boyfriend, she reports she is feeling better today and states that she completed dressing change for self. Discussed discharge to home with close follow-up with surgery and PCP, she is agreeable to this she reports pain has been controlled with as needed pain medicine. 1. We will discharge home today 2. Follow-up with Dr. Aguilar in 1 week 3. Follow-up with general surgery in 1 week 4. Bactrim DS 1 pill twice daily x10 days 5. Augmentin 1 pill twice daily x10 days 6. [place] 5 1 tab every 6 hours as needed pain Objective Vital signs: Temp Pulse Resp BP Pulse Ox 98.6 F 61 16 102/49 L 99 07/25/21 04:00 07/25/21 04:00 07/25/21 04:00 07/25/21 04:00 07/25/21 04:00 no acute distress - *Routine HEENT Exam Head: Present: normocephalic Eye: Present: EOMI ENT: Present: mucous membranes moist - *Routine Neck Exam Present: trachea midline. Absent: tracheal deviation - *Routine Respiratory Exam Present: CTA bilaterally. Absent: accessory muscle use - *Routine Cardiovascular Exam Present: RRR - *Routine Abdominal Exam Present: soft, normoactive bowel sounds. Absent: tenderness, firm - *Routine Extremities Exam Present: full ROM, pulses intact. Absent: cyanosis, clubbing - *Routine Skin Exam Present: warm, wounds. Absent: cyanosis, erythema Comments: Dressing to left forearm clean dry and intact - *Routine
--- NOTE | 2021-07-25 09:51 | P.CONPHA_ITS ---
- Pharmacy Consult Date: 07/25/21 Time: 09:51 Referring provider: DR. MADDEN Reason for Consult:: VANCOMYCIN LEVELS Allergies and ADEs:: Allergies Allergy/AdvReac Type Severity Reaction Status Date / Time No Known Allergies Allergy Verified 04/22/18 23:44 Home Medications:: Home Medications Medication Instructions Recorded Confirmed Type No Known Home Medications 07/23/21 07/23/21 History Height: 1.7 m Weight: 95.793 kg Laboratory Results:: Laboratory Results - last 24 hr 07/23/21 09:40: Hepatitis A IgM Ab Negative, Hep Bs Antigen Negative, Hep B Core IgM Ab Negative, Hepatitis C Antibody >11.0 H 07/24/21 14:43: Vancomycin Trough 14.0 H 07/24/21 19:16: Vancomycin Peak 27.5 07/25/21 06:15: WBC 5.6 D, RBC 4.09 L, Hgb 11.8 L, Hct 34.9 L, MCV 85.3, MCH 29.0, MCHC 34.0, RDW 13.5, Plt Count 286, MPV 10.0, Neut % (Auto) 44.8, Lymph % (Auto) 43.0, [place] % (Auto) 7.9, Eos % (Auto) 3.4, Baso % (Auto) 1.0, Neut # (Auto) 2.5, Lymph # (Auto) 2.4, [place] # (Auto) 0.4, Eos # (Auto) 0.2, Baso # (Auto) 0.1, Total Counted 100, Neutrophils % (Manual) 47, Lymphocytes % (Manual) 47, Monocytes % (Manual) 6, Platelet Estimate Normal, Hypochromasia 1+, Macrocytosis 1+ 07/25/21 06:15: Sodium 141, Potassium 4.1, Chloride 113 H, Carbon Dioxide 24, Anion Gap 8.1, BUN 8, Creatinine 0.60, Estimated Creat Clear 192, Estimated GFR 112, Est GFR ( Amer) 135, Glucose 110 H, Calcium 8.1 L Medical History: Reports:: MRSA Denies:: Cancer, Diabetes Mellitus Type 1, Diabetes Mellitus Type 2 Assessment and Plan (1) Tobacco use Status: Acute Category: Social Hx Code(s): Z72.0 - Tobacco use (2) Abscess of skin or subcutaneous tissue Status: Acute Qualifiers: Site of cutaneous abscess: extremity Site of cutaneous abscess of extremity: upper extremity Laterality: left Qualified Code(s): L02.414 - Cutaneous abscess of left upper limb Category: Medical Code(s): L02.91 - Cutaneous abscess, unspecified (3) Obesity (BMI 30.0-34.9) Status: Acute Category: Medical Code(s): E66.9 - Obesity, unspecified - Assessment and plan all Dx Assessment and Plan for all problems:: VANCOMYCIN TROUGH WAS 14.0 MCG/ML AND PEAK WAS 27.5 MCG/ML. RECOMMEND CONTINUING WITH CURRENT DOSE OF VANCOMYCIN 1500 MG Q8H.
--- NOTE | 2021-07-25 10:49 | PC.NURSE ---
Patient and boyfriend were sleeping upon entering the room. Patient informed of discharge. Patient stated she would need time to find a ride and requested a minute to wake up before proceeding with discharge.
--- NOTE | 2021-07-25 11:23 | PC.NURSE ---
wound care charted as not done, dressing applied in or entered in error.
--- NOTE | 2021-07-25 11:27 | HMH.PHAINT ---
Spoke with the patient about her medication list. Went over the new medications that were being sent in for her. Made sure she knew what they were being used for, where to pick them up at, and how to take them. She did not have any questions or concerns when we spoke. The patient was provided a copy of the medication list.
--- NOTE | 2021-07-25 13:12 | PC.NURSE ---
Patient stated that her ride would not be here until at least an hour or two. Patient stated she was not ready to be taught how to do her dressing change and wanted to keep resting/sleeping.
--- NOTE | 2021-07-25 15:29 | PC.NURSE ---
Patient and significant other taught how to change dressing and instructed to change dressing twice a day. Patient's significant other demonstrated education by properly and effectively discarded old dressing and replacing with new dressing right before discharge.
[2021-07-26 13:53] LABS: Acetone <.010 g/dL (0.000-0.010); Butalbital <1 ug/mL (1-10); Chlordiazepoxide <0.1 ug/mL (0.1-0.9); Diazepam <0.1 ug/mL (0.1-0.9); Ethanol <.010 g/dL (0.000-0.010); Isopropanol <.010 g/dL (0.000-0.010); Pentobarbital <1 ug/mL (1-5)
--- NOTE | 2021-07-27 13:12 | HMH.ANESII ---
[facility] Anesthesia Record Part II Discharge Time: 10:46 Destination: [facility] Day [facility] (OP Surgery) PACU nurse assessment reviewed?: Yes Patient Condition:: Good Anesthesia Complications:: None Swallowing reflex intact?: Yes Cyanosis?: No Blood Pressure: 110/68 Pulse Rate: 78 Temperature: 97.3 F Mental Status: Alert & Oriented Pain level:: 0 Nausea and/or vomitting:: None Intake, IV Amount: 0
[2021-07-27 13:13] VITALS: BP 110/68; PULSE 78; TEMP 36.3
== END 2021-07-25 15:28 | disposition home or self-care (01) | DRG 603 ==
LOC: ER 06:05 → 2ND 08:54
PROVIDERS: Surgery; Admitting Provider Emergency Medicine; Emergency Provider Emergency Medicine; Visit Provider Emergency Medicine
PROC: 0J9H3ZX Drainage of Left Lower Arm Subcutaneous Tissue and Fascia, Percutaneous Approach, Diagnostic (ICD-10-PCS; principal; 2021-07-23 10:15)
DX: L02.414 Cutaneous abscess of left upper limb; F17.210 Nicotine dependence, cigarettes, uncomplicated; E66.9 Obesity, unspecified; Z68.33 Body mass index [BMI] 33.0-33.9, adult; F17.290 Nicotine dependence, other tobacco product, uncomplicated; Z86.14 Personal history of Methicillin resistant Staphylococcus aureus infection
CPT/HCPCS: 25028; 36415; 73201; 80048; 80053; 80074; 80202; 80305; 80306; 81001; 83605; 84145; 84703; 85007; 85014; 85018; 85025; 85048; 85049; 85651; 86140; 86703; 87040; 87070; 87075; 87077; 87186; 87205; 96365; 96366; 96375; 99285; C9803; G0432; J2405; J2543; J3370; Q9967; U0003; U0005